=== PATIENT | female | born 1985 | race African-American/Black ===

== ENCOUNTER 2022-11-21 11:08 | Emergency (ER) | payer MEDICAID ==
[~2022-11-21] VITALS: Ht 162.6 cm; Wt 78.0 kg
[2022-11-21] MEDS ORDERED: KETOROLAC 30MG/ML VIAL IV STA (11:48)
[2022-11-21] MEDS ORDERED: FAMOTIDINE 20MG/2ML VIAL IV STA (11:48)
[2022-11-21] MEDS ORDERED: MAGNESIUM/ALUMINUM HYDROXIDE/SIMETHICONE 30ML UDC PO STA (11:48)
[2022-11-21 12:11] LABS: CLARITY URINE CLOUDY (CLEAR); COLOR URINE RED (YELLOW); KETONES URINE NEGATIVE (NEGATIVE); LEUKOCYTE ESTERASE URINE 1+ (NEGATIVE); NITRITE URINE NEGATIVE (NEGATIVE); OCCULT BLOOD URINE 3+ (NEGATIVE); PROTEIN URINE 1+ (NEGATIVE); SPECIFIC GRAVITY URINE 1.028 (1.005-1.030); UROBILINOGEN URINE 0.2 E.U./dL (0.2-1.0)
[2022-11-21 12:28] LABS: HEMATOCRIT. 35.2 % (36.0-48.0); HEMOGLOBIN. 11.3 g/dL (12.0-16.0); MEAN CORPUSCULAR HEMOGLOBIN 25.6 pg (28.0-32.0); MEAN CORPUSCULAR VOLUME 79.5 fL (81.0-99.0); PLATELET 291 x1000/uL (130-400); RED BLOOD CELL COUNT 4.42 mill/uL (4.2-5.4); RED CELL DISTRIBUTION WIDTH 14.3 % (11.6-14.6)
[2022-11-21 12:38] LABS: CHLORIDE 107 mEq/L (98-107)
[2022-11-21 12:42] LABS: PROTHROMBIN TIME 11.1 sec (9.6-11.0)
[2022-11-21 12:55] LABS: PLATELET ESTIMATE NORMAL
[2022-11-21 13:04] LABS: HCG SCREEN NEGATIVE
[2022-11-21] MEDS ORDERED: KETOROLAC 30MG/ML VIAL IV NR (15:00)
[2022-11-21] MEDS ORDERED: FAMOTIDINE 20MG/2ML VIAL IV NR (15:00)
[2022-11-21 15:10] VITALS: BP 133/92
[2022-11-21] MEDS ORDERED: MAGNESIUM/ALUMINUM HYDROXIDE/SIMETHICONE 30ML UDC PO NR (15:15)
== END 2022-11-21 16:26 | disposition home or self-care (01) ==
LOC: ER 11:08
DX: D25.9 Leiomyoma of uterus, unspecified (principal); Z88.0 Allergy status to penicillin
CPT/HCPCS: 36415; 74176; 76830; 76856; 80053; 81003; 81025; 83690; 84703; 85025; 85610; 93976; 96374; 96375; 99285; J1885; J3490; Z7610

== ENCOUNTER 2024-03-26 14:54 | Emergency (ER) | payer MEDICAID ==
[~2024-03-26] VITALS: Ht 167.6 cm; Wt 68.0 kg
[2024-03-26 14:57] VITALS: O2SAT 100
[2024-03-26] MEDS ORDERED: KETOROLAC 30MG/ML VIAL IM STA (14:59)
[2024-03-26 16:20] LABS: CARBON DIOXIDE 22 mEq/L (21-32); CHLORIDE 107 mEq/L (98-107); POTASSIUM 3.7 mEq/L (3.5-5.1); SODIUM 137 mEq/L (136-145)
[2024-03-26 16:21] LABS: CALCIUM 8.9 mg/dL (8.7-10.4)
[2024-03-26 16:22] LABS: HEMOGLOBIN. 7.1 g/dL (12.0-16.0); MEAN CORPUSCULAR HEMOGLOBIN 16.9 pg (28.0-32.0); MEAN CORPUSCULAR HGB CONC 28.3 g/dL (31.0-37.0); MEAN CORPUSCULAR VOLUME 59.6 fL (81.0-99.0); PLATELET 248 x1000/uL (130-400); RED BLOOD CELL COUNT 4.19 mill/uL (4.2-5.4); RED CELL DISTRIBUTION WIDTH 20.6 % (11.6-14.6); WHITE BLOOD COUNT 9.7 x1000/uL (4.5-11.0)
[2024-03-26 16:24] LABS: DIFFERENTIAL COMMENT 1
[2024-03-26 16:25] LABS: CREATININE 0.6 mg/dL (0.6-1.0); GLUCOSE 100 mg/dL (70-105)
[2024-03-26 16:26] LABS: UREA NITROGEN BLOOD 9 mg/dL (9-23)
[2024-03-26 16:27] LABS: ALANINE AMINOTRANSFERASE 10 IU/L (10-49); ASPARTATE AMINOTRANSFERASE 18 IU/L (<34)
[2024-03-26 16:28] LABS: ALBUMIN 4.3 g/dL (3.2-4.8); BILIRUBIN DIRECT 0.2 mg/dL (<=3.0); BILIRUBIN TOTAL 0.5 mg/dL (0.1-1.0); PROTEIN TOTAL 7.3 g/dL (6.0-8.3)
[2024-03-26 17:39] LABS: ANISOCYTOSIS 2+; HYPOCHROMASIA 3+; MICROCYTOSIS 3+; PLATELET ESTIMATE NORMAL
[2024-03-26 17:40] LABS: OVALOCYTES 1+
[2024-03-26] MEDS ORDERED: FERR324T4 MT (18:28)
[2024-03-26] MEDS: KETOROLAC 30MG/ML VIAL IM NR (18:54)
[2024-03-26 18:56] LABS: CLARITY URINE CLEAR (CLEAR); COLOR URINE YELLOW (YELLOW); GLUCOSE URINE NEGATIVE (NEGATIVE); KETONES URINE 1+ (NEGATIVE); LEUKOCYTE ESTERASE URINE NEGATIVE (NEGATIVE); NITRITE URINE NEGATIVE (NEGATIVE); OCCULT BLOOD URINE 3+ (NEGATIVE); PH URINE 7.5 (4.5-8.0); PROTEIN URINE 1+ (NEGATIVE); SPECIFIC GRAVITY URINE 1.026 (1.005-1.030)
[2024-03-26 19:21] VITALS: BP 143/77; PULSE 65; RESP 16; TEMP 98
[2024-03-26 19:23] LABS: HCG SCREEN NEGATIVE
[2024-03-26 19:28] LABS: BACTERIA URINE 2+; RBC URINE 25-50 /hpf (0-2); SQUAMOUS EPITHELIAL CELL URINE 1+ /lpf (RARE/1+)
[2024-03-26 19:29] LABS: WBC URINE 0-2 /hpf (0-2)
== END 2024-03-26 19:22 | disposition home or self-care (01) ==
LOC: ER 14:54
DX: D25.9 Leiomyoma of uterus, unspecified (principal); D64.9 Anemia, unspecified; Z88.8 Allergy status to other drugs, medicaments and biological substances
CPT/HCPCS: 99285; 76830; 76856; 80076; 80048; 81003; 81025; 84703; 83690; 85025; 36415; 96372; J1885

== ENCOUNTER 2025-03-09 18:59 | Emergency (ER) | payer MEDICAID ==
[~2025-03-09] VITALS: Ht 167.6 cm; Wt 86.0 kg
[~2025-03-09 18:59] MED LIST: FERR324T4 MT
[2025-03-09 19:17] VITALS: TEMP 36.7; O2SAT 100
[2025-03-09 19:57] LABS: BASOPHILS % 1.1 % (0.0-2.0); EOSINOPHILS % 3.9 % (0.0-5.0); HEMATOCRIT. 26.5 % (36.0-48.0); HEMOGLOBIN. 7.7 g/dL (12.0-16.0); LYMPHOCYTES % 25.1 % (20.0-50.0); MEAN CORPUSCULAR HEMOGLOBIN 17.6 pg (28.0-32.0); MEAN CORPUSCULAR HGB CONC 29.1 g/dL (31.0-37.0); MEAN CORPUSCULAR VOLUME 60.4 fL (81.0-99.0); MEAN PLATELET VOLUME 7.6 fl (7.4-10.4); MONOCYTES % 9.6 % (2.0-8.0); NEUTROPHILS % 60.3 % (40.0-76.0); PLATELET 573 x1000/uL (130-400); RED BLOOD CELL COUNT 4.39 mill/uL (4.2-5.4); RED CELL DISTRIBUTION WIDTH 21.2 % (11.6-14.6); WHITE BLOOD COUNT 4.8 x1000/uL (4.5-11.0)
[2025-03-09 19:59] LABS: ADD RBC MORPHOLOGY YES; DIFFERENTIAL COMMENT 1
[2025-03-09 20:05] LABS: CHLORIDE 108 mEq/L (98-107); POTASSIUM 3.5 mEq/L (3.5-5.1); SODIUM 140 mEq/L (136-145)
[2025-03-09 20:06] LABS: CALCIUM 9.1 mg/dL (8.7-10.4); CARBON DIOXIDE 26 mEq/L (21-32)
[2025-03-09 20:11] LABS: CREATININE 0.7 mg/dL (0.6-1.0); GLUCOSE 116 mg/dL (70-105); UREA NITROGEN BLOOD 9 mg/dL (9-23)
[2025-03-09 20:13] LABS: ALANINE AMINOTRANSFERASE 33 IU/L (10-49); ALBUMIN 4.4 g/dL (3.2-4.8); ASPARTATE AMINOTRANSFERASE 30 IU/L (<34)
[2025-03-09 20:14] LABS: BILIRUBIN DIRECT < 0.1 mg/dL (<=3.0); BILIRUBIN TOTAL 0.4 mg/dL (0.1-1.0); PROTEIN TOTAL 7.4 g/dL (6.0-8.3)
[2025-03-09 20:16] LABS: PLATELET ESTIMATE INCREASED
[2025-03-09 20:18] LABS: HYPOCHROMASIA 3+; MICROCYTOSIS 3+
[2025-03-09 20:19] LABS: ANISOCYTOSIS 2+
[2025-03-09 20:21] LABS: CLARITY URINE CLEAR (CLEAR); COLOR URINE YELLOW (YELLOW); GLUCOSE URINE NEGATIVE (NEGATIVE); KETONES URINE NEGATIVE (NEGATIVE); LEUKOCYTE ESTERASE URINE NEGATIVE (NEGATIVE); NITRITE URINE NEGATIVE (NEGATIVE); OCCULT BLOOD URINE 3+ (NEGATIVE); PH URINE 5.5 (4.5-8.0); PROTEIN URINE NEGATIVE (NEGATIVE); SPECIFIC GRAVITY URINE 1.023 (1.005-1.030); UCG SCREEN NEGATIVE; UROBILINOGEN URINE 0.2 E.U./dL (0.2-1.0)
[2025-03-09 20:22] LABS: UCG KIT LOT# 946166
[2025-03-09 20:29] LABS: BACTERIA URINE 1+; SQUAMOUS EPITHELIAL CELL URINE 1+ /lpf (RARE/1+); WBC URINE 0-2 /hpf (0-2)
[2025-03-09 20:35] VITALS: TEMP 98.1
[2025-03-09] MEDS: CYCLOBENZAPRINE 10MG TABLET PO ONE (20:35)
[2025-03-09] MEDS: ACETAMINOPHEN 500MG TABLET PO ONE (20:35)
[2025-03-09] MEDS: KETOROLAC 30MG/ML VIAL IM ONE (20:36)
[2025-03-09 21:55] VITALS: BP 112/66; PULSE 73; RESP 16; O2SAT 98
== END 2025-03-09 21:57 | disposition home or self-care (01) ==
LOC: ER 18:59
DX: M48.00 Spinal stenosis, site unspecified (principal); M79.7 Fibromyalgia; Z79.899 Other long term (current) drug therapy; Z88.0 Allergy status to penicillin
CPT/HCPCS: 99285; 72131; 80076; 80048; 81003; 81025; 83690; 85025; 36415; 93005; 96372; J1885